=== PATIENT | male | born 1965 | race Caucasian/White ===

== ENCOUNTER 2021-11-14 06:52 | Emergency (ER) | payer BC ==
[~2021-11-14] VITALS: Ht 200.7 cm; Wt 136.1 kg
[2021-11-14 07:05] VITALS: BP_SYST 125
[2021-11-14] MEDS ORDERED: KETOROLAC TROMETHAMINE 60 MG/2 ML VIAL IM ONE (07:15)
[2021-11-14] MEDS ORDERED: TRAM50TA PO (08:24)
[2021-11-14 08:39] VITALS: BP_SYST 134
== END 2021-11-14 08:39 | disposition home or self-care (01) ==
LOC: SED 06:52
DX: M13.871 Other specified arthritis, right ankle and foot (principal); M79.671 Pain in right foot; Z79.899 Other long term (current) drug therapy
CPT/HCPCS: 99284; 93971; 73610; 73630; 96372; J1885